=== PATIENT | male | born 1995 | race Caucasian/White ===

== ENCOUNTER 2018-06-18 18:50 | Emergency (ER) | payer BC, OTHER ==
[~2018-06-18] VITALS: Ht 182.9 cm; Wt 115.7 kg
[2018-06-18] MEDS ORDERED: NORCO 5-325 TA1 EACH PO (20:08)
[2018-06-18 20:22] VITALS: BP 126/84
== END 2018-06-18 20:23 | disposition home or self-care (01) ==
LOC: ER 18:50
DX: S82.401A Unspecified fracture of shaft of right fibula, initial encounter for closed fracture (principal); W18.39XA Other fall on same level, initial encounter; Y93.73 Activity, racquet and hand sports; Y92.89 Other specified places as the place of occurrence of the external cause; Y99.8 Other external cause status